=== PATIENT | male | born 1965 | race Caucasian/White ===

== ENCOUNTER 2016-07-23 07:57 | Day surgery (SDC) | payer OTHER ==
[~2016-07-23] VITALS: Ht 190.5 cm; Wt 120.2 kg
[~2016-07-23 07:57] MED LIST: GINK120C PO; OMEG300C3 PO; Sodium Chloride LOK Flush 10 mL Syringe IV PRN; UBID200C31 PO; fentaNYL-PF 50 mCg/mL 2 mL Inj IVPUSH PRN
[2016-07-23] MEDS: 0.9% Sodium Chloride 1,000 ML IV SCH ×4 (08:11→09:22)
[2016-07-23 08:13] VITALS: BP 132/85; PULSE 68; RESP 16; O2SAT 93
[2016-07-23 09:29] VITALS: BP 131/83; PULSE 67; RESP 14; O2SAT 91
[2016-07-23 09:39] VITALS: BP 115/82; PULSE 75; RESP 14; O2SAT 96
[2016-07-23 09:48] VITALS: BP 118/71; PULSE 72; RESP 16; O2SAT 98
--- NOTE | 2016-07-23 10:18 | ENDO ---
[address] [address] ENDOSCOPY PROCEDURE PATIENT: ARIANNE MCBRIDE : 1965 MR#: [id number] ADMIT: 07/23/2016 JOB ID: [id number] DATE OF PROCEDURE: 07/23/2016 PROCEDURE: Colonoscopy. INDICATION: Screening. MISCELLANEOUS: The patient's ASA classification is 1. Mallampati score was 1. MEDICATIONS: Please see nurse's notes for details regarding medications for sedation INSTRUMENT USED: [id number] PREPARATION QUALITY: Good. PROCEDURE DETAILS: After informed consent was obtained, the patient was brought to the GI suite, where he was placed on oxygen via nasal cannula and monitored with continuous pulse oximeter, telemetry, and blood pressure monitoring. A time-out was performed. Then, he was placed in a left lateral decubitus position and medications were administered for sedation. A digital rectal exam with palpation of the prostate was performed, which was unremarkable. The colonoscope was then inserted into the rectum and advanced under direct visualization to the cecum, which was identified by the presence of the ileocecal valve and appendiceal orifice. Once the cecum was reached, the colonoscope was withdrawn back in the rectum and the mucosa and lumen were examined. In the rectum, retroflexion was performed. Following retroflexion, remaining air in the rectum was suctioned, and procedure was completed. FINDINGS: Normal exam from rectum to cecum. IMPRESSION: Normal colonoscopy. RECOMMENDATIONS: Repeat colonoscopy in 10 years, sooner if symptoms should dictate. COMPLICATIONS: None. ESTIMATED BLOOD LOSS: Zero. MTDD
== END 2016-07-23 23:59 | disposition home or self-care (01) ==
LOC: END 07:57
PROVIDERS: ATTEND Internal Medicine Gastroenterology
DX: Z12.11 Encounter for screening for malignant neoplasm of colon (principal); G47.33 Obstructive sleep apnea (adult) (pediatric)
CPT/HCPCS: G0121; G0500; J2250; J7030